=== PATIENT | female | born 1990 | race Caucasian/White ===

== ENCOUNTER 2019-07-29 03:26 | Emergency (ER) | payer OTHER ==
[~2019-07-29] VITALS: Ht 167.6 cm; Wt 90.7 kg
[2019-07-29] MEDS ORDERED: ADDERALL 10 MG10 MG PO (03:52)
[2019-07-29] MEDS ORDERED: ABILIFY10 MG PO (03:52)
[2019-07-29] MEDS ORDERED: SERTRALINE HCL50 MG PO (03:52)
[2019-07-29] MEDS ORDERED: DESYREL150 MG PO (03:52)
[2019-07-29] MEDS ORDERED: BUPROPION XL300 MG PO (03:53)
[2019-07-29] MEDS ORDERED: BIRTH CONTROL (03:53)
[2019-07-29] MEDS ORDERED: LITHIUM CARBON300 M3 PO (03:53)
[2019-07-29 04:00] LABS: ABSOLUTE EOSINOPHILS 0.2 thou/uL (0.0-0.7); ABSOLUTE LYMPHOCYTES 2.1 thou/uL (0.8-5.3); ABSOLUTE MONOCYTES 0.6 thou/uL (0.0-1.2); ABSOLUTE NEUTROPHILS 4.2 thou/uL (1.6-8.1); BASOPHILS 0.5 %; EOSINOPHILS 2.7 %; HEMATOCRIT 41.5 % (37.0-47.0); HEMOGLOBIN 14.2 gm/dL (12.0-15.0); LYMPHOCYTES 28.7 %; MCHC 34.1 g/dL (28.0-37.0); MONOCYTES 8.8 %; MPV 7.5 fl. (7.2-11.1); NUCLEATED RBCS 0 /100WBC; PLATELET COUNT* 337 thou/uL (150-400); POLYS 59.3 %; RBC 4.72 mil/uL (4.20-5.00); RDW-CV 13.5 % (10.5-14.5); WBC 7.2 thou/uL (4.0-11.0)
[2019-07-29 04:02] LABS: URINE BILIRUBIN NEGATIVE (Negative); URINE BLOOD NEGATIVE (Negative); URINE CLARITY CLEAR; URINE COLOR YELLOW; URINE GLUCOSE-RANDOM NEGATIVE (Negative); URINE KETONES NEGATIVE (Negative); URINE LEUKOCYTES-REFLEX NEGATIVE (Negative); URINE NITRITE-REFLEX NEGATIVE (Negative); URINE PROTEIN NEGATIVE (Negative); URINE SPECIFIC GRAVITY 1.025 (1.005-1.030); URINE UROBILINOGEN 0.2 E.U./dl (0.2-1.0)
[2019-07-29 04:08] LABS: AMP/METHAMP Negative (Negative); BARBITURATES Negative (Negative); BENZODIAZEPINES Negative (Negative); COCAINE Negative (Negative); METHADONE Negative (Negative); OPIATES Negative (Negative); PCP Negative (Negative); THC Negative (Negative)
[2019-07-29 04:09] LABS: CREATININE 0.9 mg/dL (0.6-1.3); POTASSIUM 3.8 mmol/L (3.5-5.1)
[2019-07-29 04:14] LABS: ALBUMIN 3.3 g/dL (3.4-5.0); TOTAL BILIRUBIN 0.2 mg/dL (<0.1-1.0); TOTAL PROTEIN 7.7 g/dL (6.4-8.2)
[2019-07-29 04:22] LABS: SALICYLATE < 2.8 mg/dL (2.8-20.0)
[2019-07-29 04:28] LABS: ACETAMINOPHEN < 2 ug/mL (10-30); ALCOHOL < 10 mg/dL (<10)
[2019-07-29 11:50] VITALS: BP 107/62
== END 2019-07-29 11:50 | disposition short-term general hospital (02) ==
LOC: M.ERS 03:26
PROVIDERS: Emergency Medicine
DX: R45.851 Suicidal ideations (principal); F41.9 Anxiety disorder, unspecified; F32.9 Major depressive disorder, single episode, unspecified; F90.9 Attention-deficit hyperactivity disorder, unspecified type; Z91.018 Allergy to other foods; Z79.899 Other long term (current) drug therapy